=== PATIENT | female | born 1960 | race Caucasian/White ===

== ENCOUNTER 2022-10-17 15:08 | Outpatient (CLI) | payer BC, SELFPAY ==
--- NOTE | 2022-10-17 15:20 | CRLHL7_ITS ---
For Patients: As a result of the Century Cures Act, medical imaging exams and procedure reports are released immediately into your electronic medical record. You may view this report before your referring provider. If you have questions, please contact your health care provider. BILATERAL SCREENING MAMMOGRAM WITH COMPUTER-AIDED DETECTION AND TOMOSYNTHESIS TECHNIQUE: CC and MLO views were obtained. These mammographic images have been obtained using full-field digital technique. These mammographic images were interpreted with the benefit of computer-aided detection. Breast Tomosynthesis was used in this interpretation. COMPARISON FILM: 07/30/21, 03/02/20, 10/30/18. FINDINGS: The breasts are heterogeneously dense, which may obscure small masses IMPRESSION: There is no radiographic evidence for malignancy. ASSESSMENT: BI-RADS Category 1: Negative RECOMMENDATION: Routine screening mammogram in 1 year. A lay language report of this examination will be provided to the patient. Ace Daniels M.D. Diagnostic/Nuclear Medicine Radiologist [email or web address] MURALI/Dictated by: Ace Daniels MD @ 10/18/2022 9:37:00 AM (Electronically Signed)
== END 2022-10-17 15:09 | disposition home or self-care (01) ==
LOC: MAMMO 15:09
PROVIDERS: PCP Emergency Medicine; Visit Provider Emergency Medicine
DX: Z12.31 Encounter for screening mammogram for malignant neoplasm of breast (principal); R92.2 Inconclusive mammogram
CPT/HCPCS: 77063; 77067

== ENCOUNTER 2023-03-21 09:20 | Outpatient (CLI) | payer BC, SELFPAY | END 2023-03-21 09:21 | disposition home or self-care (01) | LOC: NFLDREF 03-23 03:40 | PROVIDERS: PCP Emergency Medicine; Referring Provider Emergency Medicine; Visit Provider Emergency Medicine | DX: Z00.00 Encounter for general adult medical examination without abnormal findings (principal); R00.2 Palpitations | CPT/HCPCS: 80048; 80061 ==

== ENCOUNTER 2024-02-23 07:02 | Outpatient (CLI) | payer BC, SELFPAY ==
--- NOTE | 2024-02-23 08:40 | W.ANESCHARGE ---
Anesthesia Charges Start Date/Time Anesthesia Start Date: 02/23/24 Anesthesia Start Time: 08:05 Stop Date/Time Anesthesia Stop Date: 02/23/24 Anesthesia Stop Time: 08:37
== END 2024-02-23 07:03 | disposition home or self-care (01) ==
LOC: OP CLINIC 07:04
PROVIDERS: PCP Emergency Medicine; Visit Provider Surgery
DX: Z12.11 Encounter for screening for malignant neoplasm of colon (principal); Z86.010 Personal history of colon polyps
CPT/HCPCS: 00812; 45378; J2704

== ENCOUNTER 2024-04-05 07:44 | Outpatient (CLI) | payer BC, SELFPAY ==
--- NOTE | 2024-04-05 08:15 | CRLHL7_ITS ---
For Patients: As a result of the Century Cures Act, medical imaging exams and procedure reports are released immediately into your electronic medical record. You may view this report before your referring provider. If you have questions, please contact your health care provider. BILATERAL SCREENING MAMMOGRAM WITH COMPUTER-AIDED DETECTION AND TOMOSYNTHESIS TECHNIQUE: CC and MLO views were obtained. These mammographic images have been obtained using full-field digital technique. These mammographic images were interpreted with the benefit of computer-aided detection. Breast Tomosynthesis was used in this interpretation. COMPARISON FILM: 10/17/22, 07/30/21, 03/02/20. FINDINGS: The breasts are heterogeneously dense, which may obscure small masses IMPRESSION: There is no radiographic evidence for malignancy. ASSESSMENT: BI-RADS Category 2: Benign RECOMMENDATION: Routine screening mammogram in 1 year. A lay language report of this examination will be provided to the patient. Sharath Gómez M.D. Diagnostic Radiologist [email or web address] MURALI/Dictated by: Sharath Gómez MD @ 04/05/2024 10:05:00 AM (Electronically Signed)
== END 2024-04-05 07:45 | disposition home or self-care (01) ==
LOC: MAMMO 07:44
PROVIDERS: PCP Emergency Medicine; Visit Provider Emergency Medicine
DX: Z12.31 Encounter for screening mammogram for malignant neoplasm of breast (principal); R92.2 Inconclusive mammogram
CPT/HCPCS: 77063; 77067

== ENCOUNTER 2025-06-22 08:13 | Outpatient (CLI) | payer BC, SELFPAY ==
[2025-06-24 08:51] LABS: HPV Source Cervix
[2025-06-28 13:23] LABS: Pap Test Digital Imaging Done
== END 2025-06-22 08:14 | disposition home or self-care (01) ==
PROVIDERS: Visit Provider Nurse Practitioner Family
DX: Z11.51 Encounter for screening for human papillomavirus (HPV) (principal); Z12.4 Encounter for screening for malignant neoplasm of cervix; Z13.6 Encounter for screening for cardiovascular disorders; Z13.9 Encounter for screening, unspecified
CPT/HCPCS: 80053; 80061; 87624; 87625; 88141; 88142; 88175